=== PATIENT | female | born 1945 | race Caucasian/White ===

== ENCOUNTER 2023-01-07 11:30 | Inpatient (IN) | payer MEDICARE ==
[~2023-01-07] VITALS: Ht 157.5 cm; Wt 65.7 kg
[~2023-01-07 11:30] MED LIST: ALPH600C PO; ASPI81TA26 PO; CEPH500C PO; CINN500C15 PO; CITA20TA6 PO; CVS500CA5 PO; ECHI400C2 PO; GABA-1171 PO; GINK1CAP PO; GRAP50CA3 PO; HYDR-3490 PO; IBUP200C29 PO; INUL2TAB PO; MAGN250T7 PO; METO50TA7 PO; OMEG10002 PO; OXYC5CAP56 PO; POTA99CA2 PO; PROBCAP2 PO; RA K500C PO; RA M200C4 PO; TRAZ1TAB10 PO; VITA100093 PO; VITMTA PO; ZINC50TA34 PO; [UNRECOGNIZED DRUG - OTHER] PO; [UNRECOGNIZED DRUG - OTHER] PO; [UNRECOGNIZED DRUG - OTHER] PO; ceFAZolin SOD 2 GM in IV 1 EA IV ONE; prevagen PO; selenium PO
[2023-01-07] MEDS ORDERED: LR 1,000 ML IV SCH ×2 (12:45→18:15)
[2023-01-07] MEDS ORDERED: GRAP60TA PO (13:33)
[2023-01-07] MEDS ORDERED: OXYC-517 PO (13:33)
[2023-01-07] MEDS ORDERED: ALPH200C6 PO (13:33)
[2023-01-07] MEDS ORDERED: RA T500C2 PO (13:46)
[2023-01-07] MEDS ORDERED: HOME MED LIST COMPLETE! XX SCH (13:50)
[2023-01-07] MEDS ORDERED: propofoL 200 MG/20 ML VIAL As Ordered ONE (14:50)
[2023-01-07] MEDS ORDERED: ONDANSETRON 4MG 2ML VIAL As Ordered ONE (14:50)
[2023-01-07] MEDS ORDERED: MIDAZOLAM INJ 2MG/2ML VIAL As Ordered ONE (14:50)
[2023-01-07] MEDS ORDERED: fentaNYL 100 MCG/2 ML INJECTION As Ordered ONE (14:50)
[2023-01-07] MEDS ORDERED: LIDOCAINE 2% 100MG/5ML SDV (FOR ANES.) As Ordered ONE (14:50)
[2023-01-07] MEDS ORDERED: EPINEPHrine INJ 1 MG/ML 1ML AMP As Ordered ONE (16:53)
[2023-01-07] MEDS ORDERED: GENTAMICIN SULF 80MG/2ML VIAL As Ordered ONE (16:53)
[2023-01-07] MEDS ORDERED: ACETAMINOPHEN 1000MG 100ML IV BAG As Ordered ONE (17:35)
[2023-01-07] MEDS ORDERED: LABETALOL 100MG/20ML VIAL As Ordered ONE (18:12)
[2023-01-07] MEDS ORDERED: HYDROMORPHONE HCL 0.5 MG/ 0.5 ML SYRINGE IV PRN (18:15)
[2023-01-07] MEDS ORDERED: oxyCODONE 5MG TAB PO PRN (18:15)
[2023-01-07] MEDS ORDERED: fentaNYL 100 MCG/2 ML INJECTION IV PRN (18:15)
[2023-01-07] MEDS ORDERED: ONDANSETRON 4MG 2ML VIAL IV PRN ×2 (18:15→19:50)
[2023-01-07] MEDS ORDERED: ceFAZolin SOD 2 GM in D5W MINI-BAG PLUS 50 ML IV SCH (19:50)
[2023-01-07] MEDS ORDERED: MORPHINE 2 MG/ML 1ML VIAL IV PRN (19:50)
[2023-01-07] MEDS ORDERED: amLODIPine 5 MG TAB PO ONE (19:50)
[2023-01-07 20:20] VITALS: BP 150/69; TEMP 98.1; O2SAT 94
[2023-01-07 20:25] LABS: BASO % 0.1 % (0.0-1.0); EOS # 0.1 10^3/uL (0.0-0.5); EOS % 0.8 % (0.0-3.0); HEMATOCRIT 37.5 % (36.0-47.0); HEMOGLOBIN 11.9 g/dl (12.0-15.5); LYMPH % 13.5 % (24.0-44.0); MEAN CORPUSCULAR HEMOGLOBIN 29.4 pg (27.0-33.0); MEAN CORPUSCULAR HGB CONC 31.7 g/dl (32.0-36.5); MEAN CORPUSCULAR VOLUME 92.6 fl (80.0-96.0); MONO # 0.1 10^3/uL (0.0-0.8); MONO % 1.8 % (2.0-8.0); NEUTROPHILS # 6.1 10^3/uL (1.5-8.5); NEUTROPHILS % 83.4 % (36.0-66.0); PLATELET COUNT, AUTOMATED 168 10^3/uL (150-450); RED BLOOD COUNT 4.05 10^6/uL (4.00-5.40); WHITE BLOOD COUNT 7.3 10^3/uL (4.0-10.0)
[2023-01-07 20:45] LABS: ALBUMIN 3.2 G/DL (3.2-5.2); ALKALINE PHOSPHATASE 57 U/L (46-116); ALT/SGPT 21 U/L (7.0-40); AST/SGOT 21 U/L (<34); BILIRUBIN,TOTAL 0.3 MG/DL (0.3-1.2); BLOOD UREA NITROGEN 16 MG/DL (9-23); CALCIUM LEVEL 9.2 MG/DL (8.3-10.6); CARBON DIOXIDE LEVEL 28 MMOL/L (20-31); CHLORIDE LEVEL 104 MMOL/L (98-107); CREATININE FOR GFR 0.62 MG/DL (0.55-1.30); GLOMERULAR FILTRATION RATE > 60.0 (>39); GLUCOSE, FASTING 136 MG/DL (74-106); POTASSIUM SERUM 3.6 MMOL/L (3.5-5.1); SODIUM LEVEL 140 MMOL/L (136-145); TOTAL PROTEIN 6.4 G/DL (5.7-8.2)
[2023-01-07] MEDS: GABAPENTIN 100 MG CAP PO SCH (20:47)
[2023-01-07] MEDS: traZODone 50 MG TAB PO SCH (20:47)
[2023-01-07 21:24] VITALS: BP 141/72; TEMP 97.9; O2SAT 98
[2023-01-07] MEDS: PERCOCET 5MG/325MG TAB PO PRN (21:42)
[2023-01-07 22:25] VITALS: BP 108/49; TEMP 97.9; O2SAT 94
[2023-01-07 23:25] VITALS: BP 109/51; TEMP 97.8; O2SAT 96
[2023-01-08] VITALS (7 sets, daily range): BP systolic 122–139; BP diastolic 58–69; TEMP 96.8–97.7; O2SAT 94–97
[2023-01-08] MEDS: ceFAZolin SOD 2 GM in IV 1 EA IV SCH ×3 (01:59→16:44)
[2023-01-08 06:57] LABS: PERCENT SATURATION 10.9 % (13.2-45.0)
[2023-01-08 06:59] LABS: FERRITIN 39.4 NG/ML (7.3-270.7)
[2023-01-08] MEDS ORDERED: CitaloPRAM (CeleXA) 20 MG TAB PO SCH (09:00)
[2023-01-08] MEDS: MULTIVITAMINS/MINERALS THERAP 1 TAB PO SCH (09:40)
[2023-01-08] MEDS: GABAPENTIN 100 MG CAP PO SCH ×3 (09:40→20:27)
[2023-01-08] MEDS: amLODIPine 5 MG TAB PO SCH (09:44)
[2023-01-08] MEDS: METOPROLOL TART 50 MG TAB PO SCH (09:45)
[2023-01-08] MEDS: HEPARIN SOD (PORCINE) 5000UNITS/ML 1ML VIAL/SYRINGE SC SCH ×2 (10:10→20:28)
[2023-01-08] MEDS: METAMUCIL (PSYLLIUM) PACKET PO SCH ×2 (13:10→20:28)
[2023-01-08] MEDS: MIRALAX *UNIT DOSE* 17GM PACKET PO SCH ×2 (13:10→20:28)
[2023-01-08] MEDS ORDERED: FERRIC CARBOXYMALTOSE INJ 750 MG, VIAL MATE ADAPTER 1 EACH in NS 250 ML IV ONE (14:00)
[2023-01-08] MEDS: PERCOCET 5MG/325MG TAB PO PRN (15:41)
[2023-01-08] MEDS: traZODone 50 MG TAB PO SCH (20:27)
[2023-01-08] MEDS: ASPIRIN 81MG ENTERIC TABLET PO SCH (20:28)
[2023-01-09] MEDS: ceFAZolin SOD 2 GM in IV 1 EA IV SCH ×3 (01:06→16:33)
[2023-01-09 05:44] LABS: HEMOGLOBIN 11.1 g/dl (12.0-15.5); MEAN CORPUSCULAR HEMOGLOBIN 29.6 pg (27.0-33.0); MEAN CORPUSCULAR HGB CONC 31.7 g/dl (32.0-36.5); MEAN CORPUSCULAR VOLUME 93.3 fl (80.0-96.0); PLATELET COUNT, AUTOMATED 179 10^3/uL (150-450); RED BLOOD COUNT 3.75 10^6/uL (4.00-5.40)
[2023-01-09 06:13] LABS: BLOOD UREA NITROGEN 18 MG/DL (9-23); CALCIUM LEVEL 9.3 MG/DL (8.3-10.6); CARBON DIOXIDE LEVEL 29 MMOL/L (20-31); CHLORIDE LEVEL 105 MMOL/L (98-107); CREATININE FOR GFR 0.69 MG/DL (0.55-1.30); GLOMERULAR FILTRATION RATE > 60.0 (>39); GLUCOSE, FASTING 99 MG/DL (74-106); POTASSIUM SERUM 3.7 MMOL/L (3.5-5.1); SODIUM LEVEL 143 MMOL/L (136-145)
[2023-01-09 06:31] VITALS: BP 131/79; TEMP 97.3; O2SAT 92
[2023-01-09] MEDS: PERCOCET 5MG/325MG TAB PO PRN ×2 (06:47→20:17)
[2023-01-09] MEDS: HEPARIN SOD (PORCINE) 5000UNITS/ML 1ML VIAL/SYRINGE SC SCH ×2 (08:48→20:12)
[2023-01-09] MEDS: CitaloPRAM (CeleXA) 10 MG TABLET PO SCH (08:49)
[2023-01-09] MEDS: METOPROLOL TART 50 MG TAB PO SCH (08:50)
[2023-01-09] MEDS: METAMUCIL (PSYLLIUM) PACKET PO SCH ×2 (08:50→20:12)
[2023-01-09] MEDS: MIRALAX *UNIT DOSE* 17GM PACKET PO SCH ×3 (08:50→20:12)
[2023-01-09] MEDS: amLODIPine 5 MG TAB PO SCH (08:50)
[2023-01-09] MEDS: GABAPENTIN 100 MG CAP PO SCH ×3 (08:51→20:11)
[2023-01-09] MEDS: MULTIVITAMINS/MINERALS THERAP 1 TAB PO SCH (08:51)
[2023-01-09 14:00] VITALS: BP 133/75; TEMP 97.5; O2SAT 92
[2023-01-09] MEDS: ASPIRIN 81MG ENTERIC TABLET PO SCH (20:11)
[2023-01-09] MEDS: traZODone 50 MG TAB PO SCH (20:11)
[2023-01-09 20:16] VITALS: BP 160/77; TEMP 97.7; O2SAT 95
[2023-01-10] MEDS: ceFAZolin SOD 2 GM in IV 1 EA IV SCH ×3 (00:58→16:51)
[2023-01-10 05:30] VITALS: BP 131/69; TEMP 97.7; O2SAT 93
[2023-01-10 06:37] LABS: HEMATOCRIT 35.8 % (36.0-47.0); HEMOGLOBIN 11.4 g/dl (12.0-15.5); MEAN CORPUSCULAR HEMOGLOBIN 29.6 pg (27.0-33.0); MEAN CORPUSCULAR HGB CONC 31.8 g/dl (32.0-36.5); PLATELET COUNT, AUTOMATED 169 10^3/uL (150-450); RED BLOOD COUNT 3.85 10^6/uL (4.00-5.40); WHITE BLOOD COUNT 6.1 10^3/uL (4.0-10.0)
[2023-01-10 07:05] LABS: BLOOD UREA NITROGEN 19 MG/DL (9-23); CALCIUM LEVEL 9.1 MG/DL (8.3-10.6); CARBON DIOXIDE LEVEL 30 MMOL/L (20-31); CHLORIDE LEVEL 102 MMOL/L (98-107); CREATININE FOR GFR 0.65 MG/DL (0.55-1.30); GLOMERULAR FILTRATION RATE > 60.0 (>39); GLUCOSE, FASTING 96 MG/DL (74-106); POTASSIUM SERUM 3.8 MMOL/L (3.5-5.1); SODIUM LEVEL 140 MMOL/L (136-145)
[2023-01-10] MEDS: MIRALAX *UNIT DOSE* 17GM PACKET PO SCH ×2 (09:00→20:33)
[2023-01-10] MEDS: METAMUCIL (PSYLLIUM) PACKET PO SCH ×2 (09:00→20:33)
[2023-01-10] MEDS: HEPARIN SOD (PORCINE) 5000UNITS/ML 1ML VIAL/SYRINGE SC SCH ×2 (10:14→20:39)
[2023-01-10] MEDS: amLODIPine 5 MG TAB PO SCH (10:15)
[2023-01-10] MEDS: CitaloPRAM (CeleXA) 10 MG TABLET PO SCH (10:15)
[2023-01-10] MEDS: GABAPENTIN 100 MG CAP PO SCH ×3 (10:15→20:33)
[2023-01-10] MEDS: MULTIVITAMINS/MINERALS THERAP 1 TAB PO SCH (10:15)
[2023-01-10] MEDS: METOPROLOL TART 50 MG TAB PO SCH (10:16)
[2023-01-10 14:00] VITALS: BP 143/62; TEMP 97.9; O2SAT 95
[2023-01-10 20:27] VITALS: BP 149/78; TEMP 97.2; O2SAT 95
[2023-01-10] MEDS: traZODone 50 MG TAB PO SCH (20:33)
[2023-01-10] MEDS: ASPIRIN 81MG ENTERIC TABLET PO SCH (20:33)
[2023-01-10] MEDS: ACETAMINOPHEN TAB 650MG DOSE (2X325MG) PO PRN (20:34)
[2023-01-10] MEDS: PERCOCET 5MG/325MG TAB PO PRN (22:03)
[2023-01-11] MEDS: ceFAZolin SOD 2 GM in IV 1 EA IV SCH ×3 (01:09→17:18)
[2023-01-11 05:39] VITALS: BP 155/76; TEMP 97.3; O2SAT 93
[2023-01-11] MEDS: CitaloPRAM (CeleXA) 10 MG TABLET PO SCH (09:33)
[2023-01-11] MEDS: MULTIVITAMINS/MINERALS THERAP 1 TAB PO SCH (09:33)
[2023-01-11] MEDS: GABAPENTIN 100 MG CAP PO SCH ×3 (09:33→20:17)
[2023-01-11] MEDS: HEPARIN SOD (PORCINE) 5000UNITS/ML 1ML VIAL/SYRINGE SC SCH ×2 (09:33→20:18)
[2023-01-11] MEDS: METAMUCIL (PSYLLIUM) PACKET PO SCH ×2 (09:34→20:18)
[2023-01-11] MEDS: MIRALAX *UNIT DOSE* 17GM PACKET PO SCH ×2 (09:34→20:18)
[2023-01-11] MEDS: METOPROLOL TART 50 MG TAB PO SCH (09:36)
[2023-01-11] MEDS: amLODIPine 5 MG TAB PO SCH (09:36)
[2023-01-11 14:00] VITALS: BP 144/64; TEMP 97.5; O2SAT 94
[2023-01-11] MEDS: ACETAMINOPHEN TAB 650MG DOSE (2X325MG) PO PRN (15:42)
[2023-01-11 19:58] VITALS: BP 172/87; TEMP 97.3; O2SAT 95
[2023-01-11] MEDS: traZODone 50 MG TAB PO SCH (20:17)
[2023-01-11] MEDS: ASPIRIN 81MG ENTERIC TABLET PO SCH (20:17)
[2023-01-11] MEDS: PERCOCET 5MG/325MG TAB PO PRN (20:18)
[2023-01-11 23:54] VITALS: BP 166/84
[2023-01-12] MEDS: ceFAZolin SOD 2 GM in IV 1 EA IV SCH ×3 (02:53→17:27)
[2023-01-12 05:24] VITALS: BP 162/83; TEMP 97.5; O2SAT 93
[2023-01-12 06:29] LABS: HEMATOCRIT 37.7 % (36.0-47.0); HEMOGLOBIN 12.1 g/dl (12.0-15.5); MEAN CORPUSCULAR HEMOGLOBIN 29.7 pg (27.0-33.0); MEAN CORPUSCULAR HGB CONC 32.1 g/dl (32.0-36.5); MEAN CORPUSCULAR VOLUME 92.6 fl (80.0-96.0); PLATELET COUNT, AUTOMATED 176 10^3/uL (150-450); RED BLOOD COUNT 4.07 10^6/uL (4.00-5.40); WHITE BLOOD COUNT 6.4 10^3/uL (4.0-10.0)
[2023-01-12 06:55] LABS: BLOOD UREA NITROGEN 17 MG/DL (9-23); CALCIUM LEVEL 9.1 MG/DL (8.3-10.6); CARBON DIOXIDE LEVEL 29 MMOL/L (20-31); CHLORIDE LEVEL 102 MMOL/L (98-107); CREATININE FOR GFR 0.61 MG/DL (0.55-1.30); GLOMERULAR FILTRATION RATE > 60.0 (>39); GLUCOSE, FASTING 96 MG/DL (74-106); POTASSIUM SERUM 3.8 MMOL/L (3.5-5.1); SODIUM LEVEL 139 MMOL/L (136-145)
[2023-01-12] MEDS: GABAPENTIN 100 MG CAP PO SCH ×3 (09:40→21:19)
[2023-01-12] MEDS: MULTIVITAMINS/MINERALS THERAP 1 TAB PO SCH (09:40)
[2023-01-12] MEDS: MIRALAX *UNIT DOSE* 17GM PACKET PO SCH ×2 (09:41→21:19)
[2023-01-12] MEDS: HEPARIN SOD (PORCINE) 5000UNITS/ML 1ML VIAL/SYRINGE SC SCH ×2 (09:41→21:19)
[2023-01-12] MEDS: CitaloPRAM (CeleXA) 10 MG TABLET PO SCH (09:41)
[2023-01-12] MEDS: METAMUCIL (PSYLLIUM) PACKET PO SCH ×2 (09:41→21:19)
[2023-01-12] MEDS: METOPROLOL TART 50 MG TAB PO SCH (09:44)
[2023-01-12] MEDS: PERCOCET 5MG/325MG TAB PO PRN ×2 (15:22→21:20)
[2023-01-12 20:25] VITALS: BP 147/72; TEMP 96.4; O2SAT 91
[2023-01-12] MEDS: traZODone 50 MG TAB PO SCH (21:19)
[2023-01-12] MEDS: ASPIRIN 81MG ENTERIC TABLET PO SCH (21:19)
[2023-01-13] MEDS: ceFAZolin SOD 2 GM in IV 1 EA IV SCH ×2 (01:55→09:01)
[2023-01-13 05:35] VITALS: BP 144/73; TEMP 98.2; O2SAT 92
[2023-01-13] MEDS: CitaloPRAM (CeleXA) 10 MG TABLET PO SCH (08:59)
[2023-01-13] MEDS: MIRALAX *UNIT DOSE* 17GM PACKET PO SCH (09:00)
[2023-01-13] MEDS: HEPARIN SOD (PORCINE) 5000UNITS/ML 1ML VIAL/SYRINGE SC SCH (09:00)
[2023-01-13] MEDS: MULTIVITAMINS/MINERALS THERAP 1 TAB PO SCH (09:00)
[2023-01-13] MEDS: GABAPENTIN 100 MG CAP PO SCH (09:00)
[2023-01-13] MEDS: METAMUCIL (PSYLLIUM) PACKET PO SCH (09:00)
[2023-01-13 09:01] VITALS: BP 143/70
[2023-01-13] MEDS: METOPROLOL TART 50 MG TAB PO SCH (09:01)
[2023-01-13] MEDS ORDERED: AMLO1TAB25 PO (10:16)
[2023-01-13] MEDS ORDERED: MIRA3350 PO (10:16)
== END 2023-01-13 13:25 | disposition home or self-care (01) | DRG 264 ==
LOC: M SDC 11:30 → M RR INP 19:47 → M MS5PR 20:18
PROVIDERS: ADMIT Plastic Surgery Surgery of the Hand; ATTEND Student in an Organized Health Care Education/Training Program
PROC: 0HRKX74 Replacement of Right Lower Leg Skin with Autologous Tissue Substitute, Partial Thickness, External Approach (ICD-10-PCS; principal; 2023-01-07 13:15)
DX: I70.233 Atherosclerosis of native arteries of right leg with ulceration of ankle (principal); L97.318 Non-pressure chronic ulcer of right ankle with other specified severity; I10 Essential (primary) hypertension; F32.A Depression, unspecified; Z90.49 Acquired absence of other specified parts of digestive tract; Z79.82 Long term (current) use of aspirin; Z79.899 Other long term (current) drug therapy; D50.9 Iron deficiency anemia, unspecified; G89.29 Other chronic pain; G47.00 Insomnia, unspecified; K59.00 Constipation, unspecified